=== PATIENT | female | born 1965 | race Caucasian/White ===

== ENCOUNTER 2018-07-23 09:54 | Emergency (ER) | payer SELFPAY ==
[~2018-07-23] VITALS: Ht 172.7 cm; Wt 84.0 kg
[2018-07-23] MEDS ORDERED: BACTRIM DS1 TAB PO (10:14)
[2018-07-23 10:21] VITALS: BP 141/74
== END 2018-07-23 10:26 | disposition home or self-care (01) | DRG 603 ==
LOC: ED 09:54
DX: L02.423 Furuncle of right upper limb (principal); I10 Essential (primary) hypertension; F17.210 Nicotine dependence, cigarettes, uncomplicated; B95.61 Methicillin susceptible Staphylococcus aureus infection as the cause of diseases classified elsewhere